=== PATIENT | male | born 1980 | race Caucasian/White ===

== ENCOUNTER 2022-06-12 06:36 | Emergency (ER) | payer OTHER, SELFPAY ==
[2022-06-12] VITALS (7 sets, daily range): BP systolic 119–141; BP diastolic 55–68; PULSE 55–68; RESP 11–17; TEMP 36.7; O2SAT 97–99; BMI 33.0
--- NOTE | 2022-06-12 07:01 | DI.RAD.S_ITS ---
PROCEDURE: XR CHEST 1V INDICATIONS: chest pain TECHNIQUE: One view of the chest was acquired. COMPARISON: None. FINDINGS: Surgical changes and devices: None. Lungs and pleura: Lungs are clear. No pleural effusions or pneumothorax. Mediastinum: Mediastinal contours appear normal. Heart size is normal. Bones and chest wall: No suspicious bony lesions. Overlying soft tissues appear unremarkable. IMPRESSION: No acute cardiopulmonary pathology. Dictated by: Josh Martinez M.D. on 06/12/2022 at 8:02 Approved by: Josh Martinez M.D. on 06/12/2022 at 8:02
[2022-06-12 07:13] LABS: Add Manual Diff / Slide Review NO; Basophils Absolute Auto 0 /uL (0-100); Basophils Percent Auto 0.6 % (0-2); Eosinophils Absolute Auto 100 /uL (0-450); Eosinophils Percent Auto 1.2 % (2-4); Hematocrit 41.8 % (41-53); Hemoglobin 14.5 g/dL (13.5-17.5); Lymphocytes Absolute Auto 2400 /uL (1100-4500); Lymphocytes Percent Auto 29.9 % (25-40); Mean Corpuscular HGB Conc 34.7 % (30-36); Mean Corpuscular Hemoglobin 30.3 PG (26-34); Mean Corpuscular Volume 87.3 fL (80-100); Monocytes Absolute Auto 600 /uL (0-900); Monocytes Percent Auto 7.7 % (3-14); Neutrophils Absolute Auto 4900 /uL (1500-7000); Neutrophils Percent Auto 60.6 % (50-75); Platelet Count 244 X10^3/uL (150-400); Red Blood Cell Count 4.79 X10^6/uL (4.5-5.9); Red Cell Distribution Width 13.1 % (11.6-14.8); White Blood Cell Count 8.2 X10^3/uL (4.5-11.0)
--- NOTE | 2022-06-12 07:17 | PC.NURSE ---
pt states last week he saw his pcp and was told he had had a hearattack the pcp thought but wasn't sure, today pt present with tingling in his arms and not feeling well pt is a poor historian and vague about his c/o
[2022-06-12 07:19] LABS: Alanine Aminotransferase 41 IU/L (<50); Albumin 4.8 g/dL (3.5-5.0); Albumin Globulin Ratio 1.7 (1.0-2.8); Alkaline Phosphatase 53 U/L (38-126); Aspartate Aminotransferase 35 IU/L (17-59); BUN Creatinine Ratio 9.1 (6-22); Bilirubin Total 1.2 mg/dL (0.2-1.3); Blood Urea Nitrogen 10 mg/dL (9-20); Calcium 9.2 mg/dL (8.4-10.2); Carbon Dioxide 26 mmol/L (22-32); Chloride 102 mmol/L (98-107); Creatine Kinase 176 U/L (55-170); Estimated Glomerular Filt Rate > 60 mL/min (>60); Globulin 2.9 g/dL (1.7-4.1); Glucose 115 mg/dL (70-100); HEMOLYSIS 20 (0-50); Lipase 48 U/L (23-300); Magnesium 2.2 mg/dL (1.6-2.3); Potassium 3.8 mmol/L (3.4-5.1); Sodium 138 mmol/L (137-145); Total Protein 7.7 g/dL (6.3-8.2)
--- NOTE | 2022-06-12 07:20 | ED_ITS ---
HPI - Chest Pain General Chief Complaint: Chest Pain Stated Complaint: tingleness, low blood pressure doesnt feel right Time Seen by Provider: 06/12/22 07:20 Source: patient Mode of arrival: Ambulatory Limitations: no limitations History of Present Illness HPI narrative: This is a 42-year-old male with history of hypertension and anxiety. Patient presents today stating had tingling in his extremities for a month. He comes today because he thinks he is going to . Patient states he is very scared, he describes tingling in his arms and legs at erratic time and frequency states 1 time across from the left to the right but denies any tingling of his torso, face or elsewhere. Patient denies fevers or chills, no headaches, no numbness or tingling of the face, no cough, cold or congestion. Denies chest pain or pressure, no denies shortness of breath. Denies nausea or vomiting. He states his appetite has been decreased. He states he is not stooling as frequently but had a large bowel movement on Saturday. Patient denies black or bloody stools. Denies dysuria urgency or frequency or urinary symptoms. Denies any rash. Patient states he is not sleeping well he denies depression, suicidal ideation but states he is very anxious. States he is a history of anxiety. He is supposed to be taking lorazepam but does not want to. Patient denies any surgical history. No known drug allergies. Patient vapes tobacco, occasional alcohol denies binge drinking large amounts. Denies illicit. Patient has seen his primary care Dr. Garcia in the last week, he has been referred to see Cardiology but they have not been in contact. Patient denies any cardiac family history or other family history in general. Note: Patient did not tell me but nursing states that he told them in triage that his primary care physician told him he had a heart attack at some point based on his EKG which is why he has been referred to cardiology. Related Data Home Medications Medication Instructions Recorded Confirmed Propranolol HCl (Inderal) 10 mg PO Q DAY ##0 04/28/10 Review of Systems Review of Systems ROS Unobtainable: All systems reviewed & are unremarkable except as noted in HPI and below Patient History Social History Smoking Status: Current every day smoker Smoking Status: Current every day smoker tobacco type: vaping alcohol intake frequency: 0-2 drinks per day Substance Use Type: does not use Exam Narrative Exam Narrative: GEN: well nourished, well appearing male, alert and oriented x 3, patient appears to be in moderate distress. Patient appears anxious. HEENT: Atraumatic, pupils are equal round reactive to light, extraocular movements are intact, nares are clear, TMs are clear with no fluid, there is no conjunctival pallor. Throat is clear without any exudates, erythema, tonsillar enlargement or uvular deviation. HEART: Regular rate and rhythm without murmur, clicks, rubs. Pulses are equal in upper and lower extremities LUNGS:Lungs clear to auscultation, no wheezes, rales, crackles, chest moves symmetrically ABD:bowel sounds normal, soft, non-tender, no guarding, rebound, rigidity, no masses noted, no hepatosplenomegaly :No CVA tenderness MSCL: Non-tender, no muscle atrophy, muscles strength 5/5 upper and lower extremities, full range of motion, normal gait NEURO:CN 2-12 intact, sensation normal, reflexes 2/4 upper and lower extremities. finger nose finger test normal, heel parish test normal SKIN: No rash, erythema, or other skin changes. Initial Vital Signs Initial Vital Signs: Vital Signs Temperature 98.1 F 06/12/22 06:40 Pulse Rate 68 06/12/22 06:40 Respiratory Rate 14 06/12/22 06:40 Blood Pressure 141/68 H 06/12/22 06:40 Pulse Oximetry 98 06/12/22 06:40 Oxygen Delivery Method 06/12/22 06:40 Course Orders Ordered: ED Orders 06/12/22 06:53 BNP [NT-proBNP (BNP-Adult 18+)] Stat Complete Blood Count AUTO DIFF Stat Comprehensive Metabolic Panel Stat ETOH [Ethanol (ETOH)] Stat Lipase Stat Magnesium Stat Troponin & CK Cardiac Panel Stat 06/12/22 07:01 XR chest 1V Stat EKG-12 Lead Stat 06/12/22 07:38 COVID19 -Nasal RAPID/Pre-Proc Stat Urine Drug Screen, Rapid Stat Vital Signs Vital signs: Vital Signs - 8 hr 06/12/22 06:40 06/12/22 07:26 06/12/22 07:30 Temperature 98.1 F Pulse Rate 68 55 L 67 Respiratory Rate 14 16 Blood Pressure 141/68 H Pulse Oximetry 98 99 99 Oxygen Delivery Method Room Air MDM - Chest Pain Lab Data Result diagrams: 06/12/22 06:53 06/12/22 06:53 Labs: Lab Results 06/12/22 06/12/22 06/12/22 Range/Units 06:53 06:53 06:53 WBC 8.2 (4.5-11.0) X10^3/uL RBC 4.79 (4.5-5.9) X10^6/uL Hgb 14.5 (13.5-17.5) g/dL Hct 41.8 (41-53) % MCV 87.3 (80-100) fL MCH 30.3 (26-34) PG MCHC 34.7 (30-36) % RDW 13.1 (11.6-14.8) % Plt Count 244 (150-400) X10^3/uL Neut % (Auto) 60.6 (50-75) % Lymph % (Auto) 29.9 (25-40) % [place] % (Auto) 7.7 (3-14) % Eos % (Auto) 1.2 L (2-4) % Baso % (Auto) 0.6 (0-2) % Neut # (Auto) 4900 (1812-6276) /uL Lymph # (Auto) 2400 (3650-9405) /uL [place] # (Auto) 600 (0-900) /uL Eos # (Auto) 100 (0-450) /uL Baso # (Auto) 0 (0-100) /uL Sodium 138 (137-145) mmol/L Potassium 3.8 (3.4-5.1) mmol/L Chloride 102 (98-107) mmol/L Carbon Dioxide 26 (22-32) mmol/L BUN 10 (9-20) mg/dL Creatinine 1.10 (0.66-1.25) mg/dL Estimated GFR > 60 (>60) mL/min BUN/Creatinine Ratio 9.1 (6-22) Glucose 115 H (70-100) mg/dL Calcium 9.2 (8.4-10.2) mg/dL Magnesium 2.2 (1.6-2.3) mg/dL Total Bilirubin 1.2 (0.2-1.3) mg/dL AST 35 (17-59) IU/L ALT 41 (<50) IU/L Alkaline Phosphatase 53 (38-126) U/L Total Creatine Kinase 176 H (55-170) U/L CK-MB (CK-2) 1.44 (<2.37) ng/mL CK-MB (CK-2) Rel Index 0.8 L (1.5-5.0) % Troponin I < 0.012 (0.01-0.034) ng/mL NT-Pro-B Natriuret Pep < 11 (<125) pg/mL Total Protein 7.7 (6.3-8.2) g/dL Albumin 4.8 (3.5-5.0) g/dL Globulin 2.9 (1.7-4.1) g/dL Albumin/Globulin Ratio 1.7 (1.0-2.8) Lipase 48 (23-300) U/L Ethyl Alcohol ( - 10) mg/dL 06/12/22 Range/Units 06:53 WBC (4.5-11.0) X10^3/uL RBC (4.5-5.9) X10^6/uL Hgb (13.5-17.5) g/dL Hct (41-53) % MCV (80-100) fL MCH (26-34) PG MCHC (30-36) % RDW (11.6-14.8) % Plt Count (150-400) X10^3/uL Neut % (Auto) (50-75) % Lymph % (Auto) (25-40) % [place] % (Auto) (3-14) % Eos % (Auto) (2-4) % Baso % (Auto) (0-2) % Neut # (Auto) (6795-7088) /uL Lymph # (Auto) (6699-8002) /uL [place] # (Auto) (0-900) /uL Eos # (Auto) (0-450) /uL Baso # (Auto) (0-100) /uL Sodium (137-145) mmol/L Potassium (3.4-5.1) mmol/L Chloride (98-107) mmol/L Carbon Dioxide (22-32) mmol/L BUN (9-20) mg/dL Creatinine (0.66-1.25) mg/dL Estimated GFR (>60) mL/min BUN/Creatinine Ratio (6-22) Glucose (70-100) mg/dL Calcium (8.4-10.2) mg/dL Magnesium (1.6-2.3) mg/dL Total Bilirubin (0.2-1.3) mg/dL AST (17-59) IU/L ALT (<50) IU/L Alkaline Phosphatase (38-126) U/L Total Creatine Kinase (55-170) U/L CK-MB (CK-2) (<2.37) ng/mL CK-MB (CK-2) Rel Index (1.5-5.0) % Troponin I (0.01-0.034) ng/mL NT-Pro-B Natriuret Pep (<125) pg/mL Total Protein (6.3-8.2) g/dL Albumin (3.5-5.0) g/dL Globulin (1.7-4.1) g/dL Albumin/Globulin Ratio (1.0-2.8) Lipase (23-300) U/L Ethyl Alcohol < 10 ( - 10) mg/dL Imaging Data Chest x-ray: Radiologist's Impression: [address] [address] XRay Report Signed Patient: Gianluca Boyd MR#: [id number] : 1980 Acct:[id number] Age/Sex: 42 / M Date of Service: 06/12/22 Loc: ED Accession Number: [id number] ?? Procedure: XR chest 1V Ordering Provider: Rosmery Reid MD PROCEDURE:? XR CHEST 1V ? INDICATIONS:? chest pain ? TECHNIQUE:? One view of the chest was acquired.? ? COMPARISON:? None. ? FINDINGS:? ? Surgical changes and devices:? None.? ? Lungs and pleura:? Lungs are clear.? No pleural effusions or pneumothorax.? ? Mediastinum:? Mediastinal contours appear normal.? Heart size is normal.? ? Bones and chest wall:? No suspicious bony lesions.? Overlying soft tissues appear unremarkable.? ? IMPRESSION:? No acute cardiopulmonary pathology. ? ? Dictated by: Josh Martinez M.D. on 06/12/2022 at 8:02 ? ? Approved by: Josh Martinez M.D. on 06/12/2022 at 8:02?? ECG Data Attestation: I personally reviewed and interpreted this ECG as follows: Interpretation: Sinus rhythm rate of 73 MA 146 QRS of 94 QTC of 412. Patient has no priors for comparison, normal sinus rhythm is a Q-wave in 3 and AVF. No other acute ST changes appreciated. MDM Narrative Medical decision making narrative: This is a 42-year-old male who comes emergency department with concern for tingl ing in his extremities. After discussion his primary care physician told him on a checkup that he may have had a heart attack in the past. They were unsure but based on the read out at the top of his EKG. Patient is on an antihypertensive, he does not have a strong family history. Patient does not have any other risk factors he is not any chest pain or pressure. Lab work does not show any acute changes. Patient's neuro exam is normal. After discussion patient has significant anxiety in general that seems to have been exacerbated by his recent visit with his primary care. Feel he is appropriate for discharge with no acute coronary issues currently he has follow-up with cardiology for further evaluation. Also discussed that if he has persistent tingling would be appropriate to repeat follow-up with his primary care. Discharge Plan Departure Patient Disposition: Home Clinical Impression: Paresthesia Activity Restrictions/Additional Instructions: Follow-up with Dr. Garcia regarding the numbness and tingling that you have been feeling. Your neurologic exam today is reassuring. Your EKG is included I do recommend you follow-up with cardiology as already planned but there is no definitive proof that you have had a heart attack in the past on your blood work or your EKG today. I also think that you may benefit from a daily medication for anxiety, there a lot of options out there and I would discuss this with Dr. Garcia or at least discussing possible counseling. You may continue home medications, continue to monitor your blood pressure. If systolic is 100 or lower please hold your blood pressure medication. I would make sure you are eating and drinking plenty of fluid, if you are dehydrated this will also lower your blood pressure in combination with your medication. Please return for fevers, severe headaches, passing out, new chest pain, shortness of breath, persistent vomiting, loss of bowel or bladder control, new weakness, loss of sensation in your extremities or other new or concerning changes. Prescriptions: No Action Propranolol HCl (Inderal) 10 mg PO Q DAY Qty: 0 Referrals: Fatmata Garcia MD [Primary Care Provider] - Visit Report Forms: Patient Portal/API
[2022-06-12 07:28] LABS: NT-proBNP (BNP-Adult 18+) < 11 pg/mL (<125)
[2022-06-12 07:31] LABS: Troponin I < 0.012 ng/mL (0.01-0.034)
[2022-06-12 07:34] LABS: CKMB % Relative Index 0.8 % (1.5-5.0); Creatine Kinase MB 1.44 ng/mL (<2.37)
[2022-06-12 08:08] LABS: Ethanol (ETOH) < 10 mg/dL
== END 2022-06-12 09:22 | disposition home or self-care (01) ==
PROVIDERS: Emergency Medicine; Emergency Provider Emergency Medicine; PCP Internal Medicine
DX: R20.2 Paresthesia of skin (principal); R07.9 Chest pain, unspecified
CPT/HCPCS: 36415; 71045; 80053; 80320; 82550; 82553; 83690; 83735; 83880; 84484; 85025; 93005; 99284